=== PATIENT | female | born 1970 | race Caucasian/White ===

== ENCOUNTER 2018-02-15 12:33 | Observation (INO) | payer SELFPAY ==
[2018-02-15] MEDS ORDERED: ONDANSETRON 4 MG/2 ML VIAL IVP ONE (12:41)
[2018-02-15] MEDS ORDERED: MECLIZINE HCL 25 MG TAB PO ONE ×2 (12:48→13:44)
--- NOTE | 2018-02-15 12:51 | EDPHY ---
H & P Time Seen by Provider: 02/15/18 12:40 HPI/ROS: CHIEF COMPLAINT: Dizziness and vomiting HISTORY OF PRESENT ILLNESS: 47-year-old woman had breakfast at 9:00 a.m., was going on her break to eat food at 11:45 a.m. When she was standing on a ladder and had sudden onset of dizziness which she describes as the room spinning. This is worse with movement of her head especially to the left and associated with nausea and vomiting. She lay on the ground and felt like maybe she blacked out for a 2nd or 2. Brought in by EMS, denies chest pain or shortness of breath or weakness or numbness in extremities. REVIEW OF SYSTEMS: Eye: No double vision ENT: No sore throat or ear symptoms or hearing loss Cardiac: no chest pain or syncope Pulmonary: no cough or SOB Abdomen: No abdominal pain or diarrhea Musculoskeletal: No neck pain Skin: no rash Neuro: Intermittent headaches for couple of days Constitutional: no fever : no urinary symptoms A comprehensive 10 point review of systems is otherwise negative aside from elements mentioned in the history of present illness. PAST MEDICAL HISTORY: Negative Social history: Works in construction General Appearance: Alert and conversant, cooperative. Eyes: No scleral icterus. Pupils equal round reactive extraocular motion intact, nystagmus and symptoms are reproduced by looking to the left. ENT, Mouth: Normal mucous membranes. Normal tympanic membranes. Respiratory: Normal respiratory effort, breath sounds equal, lungs are clear to auscultation. Cardiovascular: Regular rate and rhythm. Gastrointestinal: Abdomen is soft and non tender. Neurological: Alert, face symmetric, normal motor and sensory in extremities. Normal [id number] bilaterally, no pronator drift, fluent speech, toes downgoing bilaterally. Skin: Warm and dry, no rashes. Musculoskeletal: No neck stiffness. Psychiatric: Not agitated. Emergency Department course/MDM: 12-lead EKG interpreted by me; official reading is in computer system. My interpretation is sinus rhythm rate 66 no ischemic changes and normal intervals. Presents with classic symptoms of peripheral vertigo. Labyrinthitis versus benign positional vertigo. Meclizine 25 and Zofran 4. 1321: Normal head CT per Dr. Jessica Short. Will repeat oral meclizine. 1353: Recurrent dizziness and vertigo on standing, 5 mg Valium IV. 1515: Symptoms continue to improve, plan for serial exams. 1645: Failed road test, unable to walk, admission for continued symptoms. Constitutional: Initial Vital Signs Temperature (C) 36.9 C 02/15/18 12:45 Respiratory Rate 16 02/15/18 12:45 Blood Pressure 98/74 L 02/15/18 12:45 O2 Sat (%) 95 02/15/18 12:45 O2 Delivery Mode Room Air Allergies/Adverse Reactions: oxycodone Allergy (Verified 02/15/18 12:54) sulfamethoxazole [From Bactrim] Allergy (Verified 02/15/18 12:54) trimethoprim [From Bactrim] Allergy (Verified 02/15/18 12:54) Home Medications: Medication Instructions Recorded Meclizine HCl [Meclizine HCl 25 mg 25 mg PO Q6 PRN #20 tab 02/15/18 (RX,OTC)] Ondansetron Odt [Zofran Odt] 4 mg PO Q4PRN #6 tab 02/15/18 Medical Decision Making - Diagnostics Imaging Results: Imaging Impressions Head CT 02/15/18 12:54 Impression: Normal. Findings and recommendations discussed with DAYNA CHEEMA at 1:17 PM hour, 02/15/2018. Final report concurs with initial preliminary interpretation. Imaging: Discussed imaging studies w/ barrel coater Radiologist Differential Diagnosis: Differential diagnosis considered for dizziness including but not limited to vascular dissection, peripheral and central causes of vertigo, orthostatic causes including dehydration, and blood loss. Consult/Admit Bed Type: [place] [id number] - Data Points Medications Given: Discontinued Medications Diazepam (Valium) 5 mg IVP EDNOW ONE Stop: 02/15/18 13:54 Last Admin: 02/15/18 14:17 Dose: 5 mg Ibuprofen (Motrin) 600 mg PO EDNOW ONE Stop: 02/15/18 12:55 Last Admin: 02/15/18 13:24 Dose: 600 mg Meclizine HCl (Meclizine Hcl) 25 mg PO EDNOW ONE Stop: 02/15/18 12:49 Last Admin: 02/15/18 13:24 Dose: 25 mg Meclizine HCl (Meclizine Hcl) 25 mg PO EDNOW ONE Stop: 02/15/18 13:45 Last Admin: 02/15/18 14:17 Dose: 25 mg Ondansetron HCl (Zofran) 4 mg IVP EDNOW ONE Stop: 02/15/18 12:42 Last Admin: 02/15/18 12:44 Dose: 4 mg Departure - Departure Disposition: [facility] Inpatient Acute Clinical Impression: Peripheral vertigo Qualifiers: Laterality: unspecified laterality Qualified Code(s): H81.399 - Other peripheral vertigo, unspecified ear Condition: Good Instructions: Vertigo (ED) Referrals: Patient,NotPresent [Unknown] - As per Instructions Prescriptions: Meclizine HCl [Meclizine HCl 25 mg (RX,OTC)] 25 mg PO Q6 PRN #20 tab PRN Reason: Dizziness Ondansetron Odt [Zofran Odt] 4 mg PO Q4PRN #6 tab
--- NOTE | 2018-02-15 12:52 | CPEKG ---
Test Reason : OPEN Blood Pressure : / mmHG Vent. Rate : 066 BPM Atrial Rate : 066 BPM P-R Int : 140 ms QRS Dur : 095 ms QT Int : 389 ms P-R-T Axes : 021 083 035 degrees QTc Int : 408 ms Sinus rhythm Confirmed by Ponce Tran ([id number]) on 02/15/2018 12:52:01 PM Referred By: Confirmed By:Ponce Tran
[2018-02-15] MEDS ORDERED: IBUPROFEN 600 MG TAB PO ONE (12:54)
[2018-02-15] MEDS ORDERED: DIAZEPAM 5 MG/ML 1 ML SYR IVP ONE (13:53)
[2018-02-15] MEDS ORDERED: ONDANSETRON 4 MG/2 ML VIAL IVP PRN (17:31)
[2018-02-15] MEDS ORDERED: ACETAMINOPHEN 325 MG TAB PO PRN (17:31)
[2018-02-15] MEDS ORDERED: ONDANSETRON DISINTEGRATING 4 MG TAB PO PRN (17:31)
[2018-02-15 17:51] LABS: PLATELET COUNT 332 10^3/uL (150-400)
--- NOTE | 2018-02-15 18:09 | PDGENHP ---
<Jhoana Eden - Last Filed: 02/15/18 20:12> History and Physical - Chief Complaint Dizziness - History of Present Illness 47 y/o presents to the emergency room after experiencing dizziness while at work. 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 She was on the ladder when suddenly she felt like everything was spinning. She felt nauseous and knew she didn't feel right so she got down from the ladder and called to her friends that she wasn't feeling well. She then preceded to vomit (food she ate that morning) and next thing she knew, she woke up with her friends surrounding her. She has never experienced this before. She continues to feel mildly nauseous, has a headache bilateral temporal, no vision changes, denies chest pains, SOB. EKG SR. Head CT normal. She is being admitted for observation and monitoring. Past Medical/Surgical History 1. No past medical history 2. L knee meniscus repair 2 months ago Social 1. Lives in [place] 2. Quit smoking cigarettes 3 months ago, but before would smoke a pack/week. Denies illicit drug use. Rarely drinks alcohol. History Information - Allergies/Home Medication List Allergies/Adverse Reactions: oxycodone Allergy (Verified 02/15/18 17:27) "Fainted, Cold Sweats" sulfamethoxazole [From Bactrim] Allergy (Verified 02/15/18 17:27) Dyspnea trimethoprim [From Bactrim] Allergy (Verified 02/15/18 17:27) Dyspnea Home Medications: Diclofenac Sodium 1% [Voltaren Gel (*)] 1 gm TP QID PRN 02/15/18 [Last Taken ] Herbals/Supplements -Info Only 1 ea PO DAILY 02/15/18 [Last Taken 02/15/18] I have personally reviewed and updated: family history, medical history, social history, surgical history Past Medical History: See HPI list - Surgical History Additional surgical history: See HPI list - Family History Positive for: cancer (Skin), myocardial infarction (Uncle, aunt) - Social History Smoking Status: Former smoker Alcohol Use: Rarely Drug Use: None Review of Systems Review of Systems: ROS: 10pt was reviewed & negative except for what was stated in HPI & below Constitutional: Reports: malaise EENMT: Reports: no symptoms Cardiac: Reports: lightheadedness, syncope Respiratory: Reports: no symptoms Gastrointestinal: Reports: vomitting, nausea Genitourinary: Reports: no symptoms Muscolosketal: Reports: no symptoms Skin: Reports: no symptoms Neurological: Reports: headache Hematologic/Lymphatic: Reports: no symptoms Immunologic/Allergy: Reports: other (See allergy list) Physical Exam Physical Exam: Lab data and imaging reviewed Temp Pulse Resp BP Pulse Ox 36.8 C 60 12 114/79 97 02/15/18 18:07 02/15/18 18:07 02/15/18 18:07 02/15/18 18:07 02/15/18 18:07 Constitutional: no apparent distress, appears nourished, not in pain Eyes: PERRL, anicteric sclera, EOMI, other (Nystagmus reproduces nausea and dizziness when looking to the left) Ears, Nose, Mouth, Throat: moist mucous membranes, hearing normal, ears appear normal, no oral mucosal ulcers Cardiovascular: regular rate and rhythym, no murmur, rub, or gallop, No edema Peripheral Pulses: 2+: dorsalis-pedis (R) (Radial 2+), dorsalis-pedis (L) ( Radial 2+) Respiratory: no respiratory distress, no rales or rhonchi, clear to auscultation Gastrointestinal: normoactive bowel sounds, soft, non-tender abdomen, no palpable masses Genitourinary: no bladder fullness, no bladder tenderness Skin: warm, normal color, no rashes or abrasions, no fluctuance, no induration, No mottled Musculoskeletal: full muscle strength, no muscle tenderness, normal joint ROM, no joint effusions Neurologic: AAOx3, sensation intact bilaterally, CN II-XII Intact Psychiatric: interacting appropriately, not anxious, not encephalopathic, thought process linear Lymph, Heme, Immunologic: no cervical LAD, no supraclavicular LAD Lab Data & Imaging Review 02/15/18 12:45 02/15/18 12:45 WBC 6.10 10^3/uL (3.80-9.50) 02/15/18 12:45 RBC 4.77 10^6/uL (4.18-5.33) 02/15/18 12:45 Hgb 11.0 g/dL (12.6-16.3) L 02/15/18 12:45 Hct 37.4 % (38.0-47.0) L 02/15/18 12:45 MCV 78.4 fL (81.5-99.8) L 02/15/18 12:45 MCH 23.1 pg (27.9-34.1) L 02/15/18 12:45 MCHC 29.4 g/dL (32.4-36.7) L 02/15/18 12:45 RDW 16.5 % (11.5-15.2) H 02/15/18 12:45 Plt Count 332 10^3/uL (150-400) 02/15/18 12:45 MPV 10.6 fL (8.7-11.7) 02/15/18 12:45 Neut % (Auto) 56.3 % (39.3-74.2) 02/15/18 12:45 Lymph % (Auto) 33.6 % (15.0-45.0) 02/15/18 12:45 [place] % (Auto) 6.7 % (4.5-13.0) 02/15/18 12:45 Eos % (Auto) 2.3 % (0.6-7.6) 02/15/18 12:45 Baso % (Auto) 1.1 % (0.3-1.7) 02/15/18 12:45 Nucleat RBC Rel Count 0.0 % (0.0-0.2) 02/15/18 12:45 Absolute Neuts (auto) 3.43 10^3/uL (1.70-6.50) 02/15/18 12:45 Absolute Lymphs (auto) 2.05 10^3/uL (1.00-3.00) 02/15/18 12:45 Absolute Monos (auto) 0.41 10^3/uL (0.30-0.80) 02/15/18 12:45 Absolute Eos (auto) 0.14 10^3/uL (0.03-0.40) 02/15/18 12:45 Absolute Basos (auto) 0.07 10^3/uL (0.02-0.10) 02/15/18 12:45 Absolute Nucleated RBC 0.00 10^3/uL (0-0.01) 02/15/18 12:45 Immature Gran % 0.0 % (0.0-1.1) 02/15/18 12:45 Immature Gran # 0.00 10^3/uL (0.00-0.10) 02/15/18 12:45 Sodium 139 mEq/L (135-145) 02/15/18 12:45 Potassium 4.1 mEq/L (3.5-5.2) 02/15/18 12:45 Chloride 107 mEq/L (97-110) 02/15/18 12:45 Carbon Dioxide 24 mEq/l (22-31) 02/15/18 12:45 Anion Gap 8 mEq/L (6-14) 02/15/18 12:45 BUN 11 mg/dL (7-23) 02/15/18 12:45 Creatinine 0.7 mg/dL (0.6-1.0) 02/15/18 12:45 Estimated GFR > 60 02/15/18 12:45 Glucose 98 mg/dL (70-100) 02/15/18 12:45 Calcium 9.0 mg/dL (8.5-10.4) 02/15/18 12:45 Total Bilirubin 0.2 mg/dL (0.1-1.4) 02/15/18 12:45 AST 24 IU/L (14-46) 02/15/18 12:45 ALT 29 IU/L (9-52) 02/15/18 12:45 Alkaline Phosphatase 66 IU/L (38-126) 02/15/18 12:45 Total Protein 7.6 g/dL (6.3-8.2) 02/15/18 12:45 Albumin 4.3 g/dL (3.5-5.0) 02/15/18 12:45 Assessment & Plan Plan: Acute Peripheral vertigo: we will do conservative comfort measures. -Meclizine PO -Ibuprofen/Tylenol for headache -Antiemetics for nausea PRN -1 500 ML NS bolus -Cont tele monitoring -PT/OT to evaluate Mildly Anemic: denies hematuria or hematochezia. Does endorses heavy menstrual cycles. -Checking iron panel Diet: Regular Code: Full VTE ppx: SCDs Dispo: Admit to obs <Fritz Bartholomew - Last Filed: 02/15/18 22:42> History and Physical - History of Present Illness Review of Systems Review of Systems: Physical Exam Physical Exam: Temp Pulse Resp BP Pulse Ox 36.8 C 61 18 111/72 96 02/15/18 19:50 02/15/18 19:50 02/15/18 19:50 02/15/18 19:50 02/15/18 19:50 Lab Data & Imaging Review 02/15/18 12:45 02/15/18 12:45 WBC 6.10 10^3/uL (3.80-9.50) 02/15/18 12:45 RBC 4.77 10^6/uL (4.18-5.33) 02/15/18 12:45 Hgb 11.0 g/dL (12.6-16.3) L 02/15/18 12:45 Hct 37.4 % (38.0-47.0) L 02/15/18 12:45 MCV 78.4 fL (81.5-99.8) L 02/15/18 12:45 MCH 23.1 pg (27.9-34.1) L 02/15/18 12:45 MCHC 29.4 g/dL (32.4-36.7) L 02/15/18 12:45 RDW 16.5 % (11.5-15.2) H 02/15/18 12:45 Plt Count 332 10^3/uL (150-400) 02/15/18 12:45 MPV 10.6 fL (8.7-11.7) 02/15/18 12:45 Neut % (Auto) 56.3 % (39.3-74.2) 02/15/18 12:45 Lymph % (Auto) 33.6 % (15.0-45.0) 02/15/18 12:45 [place] % (Auto) 6.7 % (4.5-13.0) 02/15/18 12:45 Eos % (Auto) 2.3 % (0.6-7.6) 02/15/18 12:45 Baso % (Auto) 1.1 % (0.3-1.7) 02/15/18 12:45 Nucleat RBC Rel Count 0.0 % (0.0-0.2) 02/15/18 12:45 Absolute Neuts (auto) 3.43 10^3/uL (1.70-6.50) 02/15/18 12:45 Absolute Lymphs (auto) 2.05 10^3/uL (1.00-3.00) 02/15/18 12:45 Absolute Monos (auto) 0.41 10^3/uL (0.30-0.80) 02/15/18 12:45 Absolute Eos (auto) 0.14 10^3/uL (0.03-0.40) 02/15/18 12:45 Absolute Basos (auto) 0.07 10^3/uL (0.02-0.10) 02/15/18 12:45 Absolute Nucleated RBC 0.00 10^3/uL (0-0.01) 02/15/18 12:45 Immature Gran % 0.0 % (0.0-1.1) 02/15/18 12:45 Immature Gran # 0.00 10^3/uL (0.00-0.10) 02/15/18 12:45 Sodium 139 mEq/L (135-145) 02/15/18 12:45 Potassium 4.1 mEq/L (3.5-5.2) 02/15/18 12:45 Chloride 107 mEq/L (97-110) 02/15/18 12:45 Carbon Dioxide 24 mEq/l (22-31) 02/15/18 12:45 Anion Gap 8 mEq/L (6-14) 02/15/18 12:45 BUN 11 mg/dL (7-23) 02/15/18 12:45 Creatinine 0.7 mg/dL (0.6-1.0) 02/15/18 12:45 Estimated GFR > 60 02/15/18 12:45 Glucose 98 mg/dL (70-100) 02/15/18 12:45 Calcium 9.0 mg/dL (8.5-10.4) 02/15/18 12:45 Iron 18.0 mcg/dL (37.0-170.0) L 02/15/18 20:00 TIBC 493 ug/dL (260-490) H 02/15/18 20:00 Iron Saturation 4 % (20-55) L 02/15/18 20:00 Ferritin 4.7 ng/mL (6.2-264.0) L 02/15/18 20:00 Total Bilirubin 0.2 mg/dL (0.1-1.4) 02/15/18 12:45 AST 24 IU/L (14-46) 02/15/18 12:45 ALT 29 IU/L (9-52) 02/15/18 12:45 Alkaline Phosphatase 66 IU/L (38-126) 02/15/18 12:45 Total Protein 7.6 g/dL (6.3-8.2) 02/15/18 12:45 Albumin 4.3 g/dL (3.5-5.0) 02/15/18 12:45 Assessment & Plan Assessment: Peripheral vertigo (Acute) Plan: I have personally examined and discussed the patient with Rachel Eden NP and agree with her findings and plan as outlined above. Please see my separate note for further details.
[2018-02-15] MEDS: MECLIZINE HCL 25 MG TAB PO PRN (19:36)
[2018-02-15] MEDS ORDERED: MECLIZINE HCL 25 MG TAB PO PRN (19:57)
[2018-02-15] MEDS ORDERED: NS 500 ML IV ONE (20:00)
[2018-02-15] MEDS: IBUPROFEN 200 MG TAB PO PRN (20:26)
[2018-02-15] MEDS ORDERED: DIAZEPAM 5 MG TAB PO PRN (22:45)
--- NOTE | 2018-02-15 22:45 | HOSPPROG ---
Hospitalist Progress Note Assessment/Plan: I have reviewed the chart and personally examined and discussed the patient with Rachel Eden [employer] and agree with her findings and plan as outlined in her note with the following exceptions: Healthy 47yo F here with acute onset dizziness and nausea consistent with vertigo. Story and exam consistent with peripheral etiology. Head CT negative for acute pathology. Unable to discharge from ED due to unsteady gait and risk of falls. 1. Acute vertigo: - Trial meclizine, benzos - IVF - OT evaluation for Edson manuever - If not improving, consider brain MRI to evaluate posterior circulation 2. Anemia: Microcytic. - Check iron studies Admit under observation. Objective: Vital Signs Temp Pulse Resp BP Pulse Ox 36.8 C 61 18 111/72 96 02/15/18 19:50 02/15/18 19:50 02/15/18 19:50 02/15/18 19:50 02/15/18 19:50 02/14/18 02/15/18 02/16/18 05:59 05:59 05:59 Intake Total 100 Output Total 800 Balance -700 ICD10 Worksheet Patient Problems: Problems Problem Status Onset Peripheral vertigo Acute
[2018-02-16] MEDS: IBUPROFEN 200 MG TAB PO PRN ×2 (05:49→15:06)
[2018-02-16] MEDS: MECLIZINE HCL 25 MG TAB PO PRN (05:49)
[2018-02-16 11:47] VITALS: BP 97/61
--- NOTE | 2018-02-16 12:34 | ASMTCMCOM ---
CM Note CM Note Notes: Pt is a 47 yo woman presented with Vertigo. Pt reports she is between jobs and does not have insurance at this time. CM contacted financial counseling and provided pt with Financial counseling information. Pt has a and small child and mother who is supportive and can help pt after discharge. Pt reports no other concerns, no CM needs identified. Pt discharging independent. Date Signed: 02/16/2018 12:32 PM Electronically Signed By:MARA Banuelos
--- NOTE | 2018-02-16 12:35 | ASMTLACE ---
LACE Length of stay for Answers: Less than 1 day current admission Acuity / Level of Answers: No Care: Did the patient have an inpatient admission? Social determinants Answers: Lack of community resources and/or lack of social support (no pcp, lives alone, transportation, zuleika d) Score: 4 Date Signed: 02/16/2018 12:35 PM Electronically Signed By:MARA Banuelos
[2018-02-16] MEDS ORDERED: GADOBUTROL 10 ML VIAL IVP ONE (13:26)
--- NOTE | 2018-02-16 14:43 | PDDCSUM ---
Discharge Summary Discharge Summary: Date of Admission: 02/15/2018 Date of Discharge: 02/16/2018 Studies: 1. CT head 2. Brain MRI Discharge Diagnoses: 1. Peripheral vertigo, likely vestibular neuritis 2. Nausea 3. Iron deficiency anemia 4. Lipomas Brief Hospital Course: Generally healthy 47yo F presented with acute onset dizziness and nausea consistent with vertigo. A brain MRI was obtained which did not show any acute CVA in posterior circulation. PT and OT worked with patient and recommended vestibular rehab and I provided her with a prescription for this. I also provided her with a short course of prednisone and meclizine for symptom management. I gave her a work excuse to avoid being on ladders until symptoms have resolved. Also instructed to avoid driving. She was also noted to be anemic and labs showed iron deficiency. She reports having very heavy menstrual cycles and this is likely the culprit. I sent a prescription for Fe supplements to her pharmacy. Medications: Please refer to EMR for complete list. Follow Up Plan: 1. Needs to establish with PCP Physical Exam: Vitals reviewed, afebrile and normotensive. Alert and oriented, no nystagmus, no focal neurologic deficits. RRR without m/r/g, lungs ctab, abdomen soft and nt, no leg edema, no rashes.
== END 2018-02-16 16:51 | disposition home or self-care (01) ==
LOC: F1N 18:02
PROVIDERS: ADMIT Internal Medicine; ATTEND Internal Medicine
DX: H81.399 Other peripheral vertigo, unspecified ear (principal); R11.0 Nausea; D50.9 Iron deficiency anemia, unspecified; N92.0 Excessive and frequent menstruation with regular cycle; Z87.891 Personal history of nicotine dependence
CPT/HCPCS: 96374; 97116-GP; 97162-GP; 97166-GO; A9585; G0378; G8978-GP-CI; G8979-GP-CH; J3360